=== PATIENT | male | born 1980 ===

== ENCOUNTER → 2020-09-06 | Day surgery (SDC) | payer OTHER | END | disposition home or self-care (01) | LOC: ADM 09-02 10:00 → CIR.AMB 05:48 | PROVIDERS: ATTEND Orthopaedic Surgery Sports Medicine | DX: M75.111 Incomplete rotator cuff tear or rupture of right shoulder, not specified as traumatic (principal); M75.41 Impingement syndrome of right shoulder; M24.011 Loose body in right shoulder; M75.21 Bicipital tendinitis, right shoulder ==